=== PATIENT | female | born 1980 | race Asian ===

== ENCOUNTER 2017-08-06 23:13 | Emergency (ER) | payer OTHER ==
[2017-08-07] MEDS ORDERED: NS 0.9% 1000 ML*IV.FLUID IV ONE (01:27)
[2017-08-07] MEDS ORDERED: Ketorolac INJ* 30 MG/ML 1 ML VIAL IV ONE (01:27)
[2017-08-07] MEDS ORDERED: Acetaminophen TAB* 325 MG PO ONE (01:27)
[2017-08-07] MEDS ORDERED: Metoclopramide IV* 5 MG/ML 2 ML VIAL IV SLOW PU ONE (01:29)
[2017-08-07] MEDS ORDERED: Levofloxacin 500 MG IVPREMIX(* 500 MG/100 ML BAG IVPB ONE (01:29)
[2017-08-07 02:17] LABS: ABS Basophils 0.1 10^3/ul (0-0.2); ABS Eosinophils 0.1 10^3/ul (0-0.6); ABS Lymphocytes 1.6 10^3/ul (1.0-4.8); ABS Monocytes 1.2 10^3/ul (0-0.8); ABS Neutrophils 8.2 10^3/ul (1.5-7.7); ABS Nucleated RBC 0 10^3/ul; Hematocrit 36 % (35-47); Hemoglobin 12.2 g/dl (12.0-16.0); Lymphocyte % 14.5 % (25-47); Mean Corpuscular HGB Conc 34 g/dl (31-36); Mean Corpuscular Hemoglobin 31 pg (27-31); Mean Corpuscular Volume 93 fL (80-97); Mean Platelet Volume 8.8 um3 (7.4-10.4); Nucleated Red Blood Cells % 0.1; Platelet Count 139 10^3/ul (150-450); Red Blood Count 3.88 10^6/ul (4.0-5.4); Red Cell Distribution Width 13 % (10.5-15); White Blood Count 11.2 10^3/ul (3.5-10.8)
[2017-08-07 02:25] LABS: INR 1.06 (0.77-1.02)
[2017-08-07 02:35] LABS: EGFR Non-African American 128.5 (>60)
[2017-08-07] MEDS ORDERED: Iohexol 300* (CONTRAST) 10 ML SDV IV ONE (02:41)
[2017-08-07 03:34] LABS: Urine Appearance Clear; Urine Blood 1+ (Negative); Urine Color Straw; Urine Ketones Negative (Negative); Urine Protein Negative (Negative); Urine Specific Gravity 1.006 (1.010-1.030); Urine Urobilinogen Negative (Negative)
[2017-08-07] MEDS ORDERED: metroNIDAZOLE TAB* 250 MG PO ONE (05:11)
--- NOTE | 2017-08-07 05:20 | ED ---
Sharifa Sheth Gabriel, scribed for Jose David Castellon MD on 08/07/17 at 0143 . Abdominal Pain/Female - HPI Summary HPI Summary: This patient is a 37 year old F presenting to [facility] accompanied by her with a chief complaint of ABD pain that began 3 days ago. The patient rates the pain 7/10 in severity. Patient reports nausea, back pain, and fever. Patient denies v/d, sore throat, and urinary symptoms. - History of Current Complaint Chief Complaint: EDAbdPain Stated Complaint: FEVER Time Seen by Provider: 08/07/17 01:19 Hx Obtained From: Patient Onset/Duration: Lasting Days - 3, Still Present Timing: Constant Severity Initially: Moderate Severity Currently: Moderate Pain Intensity: 7 Pain Scale Used: 0-10 Numeric Location: Diffuse Radiates: Yes Radiates to: Back Associated Signs and Symptoms: Positive: Fever, Nausea Allergies/Adverse Reactions: Allergies Allergy/AdvReac Type Severity Reaction Status Date / Time No Known Allergies Allergy Verified 08/06/17 23:18 PMH/Surg Hx/FS Hx/Imm Hx Cardiovascular History: Denies: Hx Angina, Hx Auto Implanted Cardiovert Defib, Hx Coronary Artery Disease, Hx Hypercholesterolemia Respiratory History: Denies: Hx Chronic Obstructive Pulmonary Disease (COPD), Hx Cystic Fibrosis GI History: Denies: Hx Gall Bladder Disease, Hx Gastroesophageal Reflux Disease Musculoskeletal History: Denies: Hx Back Problems, Hx Congenital Bone Abnormalities Neurological History: Denies: Hx CVA, Hx Dementia Infectious Disease History: No Infectious Disease History: Denies: Traveled Outside the [place] in Last 30 Days - Family History Known Family History: Negative: Renal Disease, Respiratory Disease, Seizure Disorder - Social History Lives: With Family Alcohol Use: None Substance Use Type: Reports: None Smoking Status (MU): Never Smoked Tobacco Review of Systems Positive: Fever Positive: Abdominal Pain, Nausea Positive: Other - back pain All Other Systems Reviewed And Are Negative: Yes Physical Exam - Summary Physical Exam Summary: VITAL SIGNS: Reviewed. GENERAL: Patient is a well-developed and nourished (MALE OR FEMALE) who is lying comfortable in the stretcher. Patient is not in any acute respiratory distress. HEAD AND FACE: No signs of trauma. No ecchymosis, hematomas or skull depressions. No sinus tenderness. EYES: PERRLA, EOMI x 2, No injected conjunctiva, no nystagmus. EARS: Hearing grossly intact. Ear canals and tympanic membranes are within normal limits. MOUTH: Oropharynx within normal limits. NECK: Supple, trachea is midline, no adenopathy, no JVD, no carotid bruit, no c- spine tenderness, neck with full ROM. CHEST: Symmetric, no tenderness at palpation LUNGS: Clear to auscultation bilaterally. No wheezing or crackles. CVS: Regular rate and rhythm, S1 and S2 present, no murmurs or gallops appreciated. ABDOMEN: Soft, RUQ is TTP. No signs of distention. No rebound no guarding, and no masses palpated. Bowel sounds are normal. Back: right CVA tenderness EXTREMITIES: FROM in all major joints, no edema, no cyanosis or clubbing. NEURO: Alert and oriented x 3. No acute neurological deficits. Speech is normal and follows commands. SKIN: Dry and warm Triage Information Reviewed: Yes Vital Signs On Initial Exam: Initial Vitals Temp Pulse Resp BP Pulse Ox 98.5 F 88 16 113/64 97 08/06/17 23:16 08/06/17 23:16 08/06/17 23:16 08/06/17 23:16 08/06/17 23:16 Vital Signs Reviewed: Yes Diagnostics - Vital Signs Vital Signs Temp Pulse Resp BP Pulse Ox 08/07/17 01:26 78 16 98 08/07/17 01:25 100.6 F 08/07/17 01:18 82 100 08/07/17 01:16 98/64 08/06/17 23:16 98.5 F 88 16 113/64 97 - Laboratory Result Diagrams: 08/07/17 02:05 08/07/17 02:05 Lab Statement: Any lab studies that have been ordered have been reviewed, and results considered in the medical decision making process. - CT CT abd/Pelvis CT Interpretation Completed By: Radiologist - acute right sided diverticulitis without abscess or free air. ED physician has reviewed this radiology report. Abdominal Pain Fem Course/Dx - Course Course Of Treatment: This patient is a 37 year old F presenting to [facility] accompanied by her with a chief complaint of ABD pain that began 3 days ago. The patient rates the pain 7/10 in severity. Patient reports nausea, back pain, and fever. Patient denies v/d, sore throat, and urinary symptoms. CT ABD/ Pelvis reveals, per radiologist, acute right sided diverticulitis without abscess or free air. Dx diverticulitis and UTI. Test results with no significant abnormalities except for _. In the ED course the patient was given toradol, reglan, flagyl, and IV fluids. Patient will be discharged and follow up from PCP. The patient is agreeable with this plan. - Diagnoses Provider Diagnoses: UTI (urinary tract infection), Diverticulitis Discharge - Sign-Out/Discharge Documenting (check all that apply): Discharge/Admit/Transfer - Discharge Plan Condition: Stable Disposition: HOME Prescriptions: Levofloxacin TAB* [Levaquin TAB*] 500 mg PO DAILY #7 tab metroNIDAZOLE [Flagyl 500 MG TAB] 500 mg PO TID #20 tab oxyCODONE/Acetamin 5/325 MG* [Percocet 5/325 TAB*] 1 tab PO Q6H PRN #14 tab MDD 4 PRN Reason: Pain Patient Education Materials: Diverticulitis (ED) Ref[place]: [facility] [place] [facility] [Outside] Additional Instructions: RETURN TO THE ER FOR ANY NEW OR WORSENING SYMPTOMS The documentation as recorded by the Sharifa benitez Gabriel accurately reflects the service I personally performed and the decisions made by Ravinder page Abdul, MD.
[2017-08-07 05:46] VITALS: BP 95/62
--- NOTE | 2017-08-07 08:21 | RAD ---
INDICATION: Abdominal pain COMPARISON: None TECHNIQUE: Axial source images were obtained from the hemidiaphragms to the symphysis pubis following administration of oral and intravenous contrast. Patient only tolerated a very limited amount of oral contrast therefore limiting bowel contrast opacification. 65 mL Omnipaque 300 was utilized. Coronal and sagittal reconstructed images were acquired. Lung bases: The lung bases are clear. Liver: The liver is normal in size. There are no masses. There is no ductal dilatation. Gallbladder: There are no calcified gallstones. There is no evidence of wall thickening or pericholecystic fluid. Spleen: The spleen is normal in size. There are no masses. Pancreas: There is no focal pancreatic mass or ductal dilatation. Adrenal glands: There is no evidence of adrenal mass. There are left adrenal calcifications perhaps related to a remote insult. This is an incidental finding. Kidneys: The kidneys are normal in size and position. There are prompt nephrograms and there is prompt excretion bilaterally. There are no renal parenchymal masses. There is no evidence of nephrolithiasis. Adenopathy: There is no evidence of adenopathy by size criteria. Fluid collections: There are no free or localized fluid collections. Vessels:There are no significant atherosclerotic changes involving the aorta. There is no focal aneurysm. The iliac vessels are normal in caliber. The IVC appears normal. GI tract: The upper GI tract is unremarkable the ileocecal valve, appendix, and cecum are normal. There is inflammatory change at the level of the hepatic flexure consistent with a colitis. There is bowel edema and there is mesenteric stranding. There is at least one diverticulum. The findings are most consistent with a focal colitis The remainder of the colon is unremarkable. Pelvic organs: The uterus and adnexa appear normal Bladder: There are no bladder masses. Abdominal and pelvic soft tissues: The extraperitoneal abdominal and pelvic soft tissues appear normal.. Osseous structures: There are no acute osseous findings. Other: None IMPRESSION: INFLAMMATORY CHANGE RIGHT UPPER QUADRANT AT THE LEVEL OF THE ASCENDING COLON MOST CONSISTENT WITH A FOCAL COLITIS. NORMAL APPENDIX. NO ADDITIONAL SIGNIFICANT FINDINGS.
== END 2017-08-07 05:44 | disposition home or self-care (01) ==
LOC: ED 23:13
DX: N39.0 Urinary tract infection, site not specified (principal); K57.92 Diverticulitis of intestine, part unspecified, without perforation or abscess without bleeding; R11.0 Nausea; R50.9 Fever, unspecified
CPT/HCPCS: 36415; 74177; 80053; 81003; 81015; 83605; 84702; 85025; 85610; 85730; 86140; 87040; 87086; 96365; 96375; 99284; A9270-GY; J1885; J1956; J2765; Q9967